=== PATIENT | male | born 1950 | race Caucasian/White ===

== ENCOUNTER → 2017-02-16 | Outpatient (CLI) | payer MEDICARE ==
[~2017-02-16] MED LIST: None per pt
== END | disposition home or self-care (01) ==
LOC: STAR 13:10
PROVIDERS: ATTEND Urology
DX: Z01.818 Encounter for other preprocedural examination (principal); N21.0 Calculus in bladder; N35.9 Urethral stricture, unspecified
CPT/HCPCS: 93005

== ENCOUNTER 2017-03-06 07:45 | Observation (INO) | payer MEDICARE ==
[2017-02-16 13:35] VITALS: BP 155/83
[~2017-03-06] VITALS: Ht 160 cm; Wt 78.9 kg
[2017-03-06] MEDS ORDERED: LACTATED RINGERS 1,000 ML IV SCH (08:04)
[2017-03-06] MEDS ORDERED: CIPR500T3 PO (08:06)
[2017-03-06] MEDS ORDERED: LIDOCAINE 1%, 2ML SQ PRN (08:30)
[2017-03-06] MEDS ORDERED: MIDAZOLAM 1 MG/ML, 2ML ONE (11:04)
[2017-03-06] MEDS ORDERED: FENTANYL PF 100 MCG/2ML ONE ×2 (11:04)
[2017-03-06] MEDS ORDERED: PROPOFOL 10 MG/ML, 20ML ONE (11:06)
[2017-03-06] MEDS ORDERED: ROCURONIUM 10MG/ML,5ML ONE (11:06)
[2017-03-06] MEDS ORDERED: SUCCINYLCHOLINE 20 MG/ML, 10ML ONE (11:06)
[2017-03-06] MEDS ORDERED: HYDROmorphone 1 MG/ML, 1ML IV PRN (11:30)
[2017-03-06] MEDS ORDERED: ACETAMINOPHEN 325 MG TABLET PO PRN (11:30)
[2017-03-06] MEDS ORDERED: OXYcodone 5 MG/5 ML ORAL.SOL UDC PO PRN (11:30)
[2017-03-06] MEDS ORDERED: HYDROcodone/APAP 7.5-325MG/15ML UDC PO PRN (11:30)
[2017-03-06] MEDS ORDERED: FENTANYL PF 100 MCG/2ML IV PRN (11:30)
[2017-03-06] MEDS ORDERED: LABETALOL 5MG/ML, 20ML IV PRN (11:30)
[2017-03-06] MEDS ORDERED: MEPERIDINE/PF 25MG/0.5ML IVPush PRN (11:30)
[2017-03-06] MEDS ORDERED: PROMETHAZINE 25 MG/ML, 1ML IV PRN (11:30)
[2017-03-06] MEDS ORDERED: ONDANSETRON 2MG/ML, 2ML IVPush PRN (11:30)
[2017-03-06] MEDS ORDERED: OMNIPAQUE 350 MG/ML, 50 ML BOTTLE INJ ONE (13:00)
[2017-03-06] MEDS ORDERED: HYDROmorphone 1 MG/ML, 1ML ONE (13:18)
[2017-03-06] MEDS ORDERED: ONDANSETRON 2MG/ML, 2ML ONE ×2 (13:48)
[2017-03-06] MEDS ORDERED: DEXAMETHASONE 4 MG/ML, 1ML ONE (13:48)
[2017-03-06] MEDS ORDERED: OMNIPAQUE 350 MG/ML, 50 ML BOTTLE ONE (14:13)
[2017-03-06] MEDS ORDERED: OXYcodone 5 MG/5 ML ORAL.SOL UDC ONE (14:22)
[2017-03-06] MEDS ORDERED: ACETAMINOPHEN 650 MG/20.3 ML UDC ONE (14:22)
[2017-03-06] MEDS ORDERED: HYDROmorphone 2 MG/ML, 1ML IV PRN (16:30)
[2017-03-06] MEDS ORDERED: OXYcodone/APAP 5/325MG TABLET PO PRN (16:30)
[2017-03-06] MEDS ORDERED: ONDANSETRON 2MG/ML, 2ML IV PRN (16:30)
[2017-03-06] MEDS ORDERED: OPIUM/BELLADONNA SUPP.RECT 16.2-60 MG PR PRN (16:30)
[2017-03-06] MEDS ORDERED: D5%-0.45NACL+KCL 20MEQ 1,000 ML IV SCH (16:30)
[2017-03-06 20:39] VITALS: BP 111/70
[2017-03-07 00:09] VITALS: BP 116/75
[2017-03-07] MEDS: CIPROFLOXACIN/PMX 400MG/200ML 200 ML IVPB SCH ×2 (00:57→13:12)
[2017-03-07 03:42] VITALS: BP 122/73
[2017-03-07 05:14] LABS: HEMOGLOBIN 14.4 g/dL (13.7-18.0)
[2017-03-07 05:21] LABS: BLOOD UREA NITROGEN 11 mg/dL (7-18)
[2017-03-07 08:30] VITALS: BP 131/76
[2017-03-07 14:09] VITALS: BP 110/64
[2017-03-07 19:24] VITALS: BP 128/70
[2017-03-08] MEDS: CIPROFLOXACIN/PMX 400MG/200ML 200 ML IVPB SCH ×2 (00:31→13:00)
[2017-03-08 01:20] VITALS: BP 135/75
[2017-03-08 07:14] VITALS: BP 122/66
[2017-03-08 12:43] VITALS: BP 123/70
[2017-03-08] MEDS ORDERED: HYDR-3240 PO (14:08)
[2017-03-08] MEDS ORDERED: PNEUMOCOCCAL 23 VACCINE IM-VACC ONE (14:30)
== END 2017-03-08 15:25 | disposition home or self-care (01) ==
LOC: OUT 07:45 → 4NOR 15:55 → OUT 15:56 → DCLOUNGE 03-08 15:05
PROVIDERS: ADMIT Urology; ATTEND Urology
DX: N40.1 Benign prostatic hyperplasia with lower urinary tract symptoms (principal); N13.8 Other obstructive and reflux uropathy; N21.0 Calculus in bladder; N35.8 Other urethral stricture; N35.9 Urethral stricture, unspecified; E78.00 Pure hypercholesterolemia, unspecified; M19.90 Unspecified osteoarthritis, unspecified site; Z83.3 Family history of diabetes mellitus; Z23 Encounter for immunization
CPT/HCPCS: 36415; 52317; 52601; 74420; 80048; 82360; 85014; 85018; 88300; 88305; 90732; 96365; 96366; 96375; C1758; C1769; C2630; G0009; G0378; J0330; J0744; J1100; J1170; J2250; J2405; J2704; J3010; J7120; Q9967